=== PATIENT | male | born 1980 | race African-American/Black ===

== ENCOUNTER 2017-11-23 11:01 | Emergency (ER) | payer OTHER ==
[~2017-11-23] VITALS: Ht 188 cm; Wt 95.3 kg
--- NOTE | ~2017-11-23 | EKG ---
[place] [address] [facility] [place] [address] ELECTROCARDIOGRAM REPORT Name: CORRIECLAUDETTE Room #: DEP VINAY Garcia#: [id number] Admission: 11/23/17 Attend Phys: Discharge: 11/23/17 Date of : 78 Report #: [id number] THIS REPORT FOR: //name// [facility] ED Test Date: 2017-11-23 Test Time: 11:07:40 Pat Name: CLAUDETTE DENTON Department: Room: Gender: C 12 [employer] Operator: MARSHA : 1980 Requested By: Abhishek Miles Order Number: [id number] MD: Abdullahi Underwood Measurements Intervals [place] Rate: 81 P: 74 NH: 156 QRS: 61 QRSD: 94 T: 53 QT: 373 QTc: 433 Interpretive Statements Sinus rhythm Consider left ventricular hypertrophy ST elev, probable normal early repol pattern No previous ECG available for comparison Electronically Signed On 11-25-2017 13:52:30 CDT by Abdullahi Underwood [email or web address] <ELECTRONICALLY SIGNED> By: Abdullahi Underwood MD, [facility] 11/25/17 1352 1107 1107 Abdullahi Underwood MD, FACC /EPI
[2017-11-23 11:39] LABS: ABSOLUTE NEUTROPHILS 9.1 thou/uL (1.4-8.2); BASOPHILS 0.8 % (0.0-2.0); EOSINOPHILS 1.9 % (0.0-3.0); HEMATOCRIT 41.1 % (42.0-52.0); HEMOGLOBIN 13.8 gm/dL (14.0-18.0); MCH 29.3 pg (26.0-34.0); MCHC 33.5 g/dL (28.0-37.0); MCV 87.6 fL (80.0-100.0); MONOCYTES 10.4 % (1.0-8.0); PLATELET COUNT 333 thou/uL (150-400); POLYS 60.9 % (36.0-66.0); RBC 4.69 mil/uL (4.50-6.00); RDW 14.9 % (10.5-14.5)
[2017-11-23 11:52] LABS: CALCIUM 8.9 mg/dL (8.5-10.1); CREATININE 1.5 mg/dL (0.7-1.3); POTASSIUM 3.8 mmol/L (3.5-5.1)
[2017-11-23 11:57] LABS: ALBUMIN 3.2 g/dL (3.4-5.0); TOTAL BILIRUBIN 0.1 mg/dL (<0.1-1.0); TOTAL PROTEIN 6.5 g/dL (6.4-8.2)
[2017-11-23] MEDS ORDERED: PROAIR HFA8.5 GM INH (12:11)
[2017-11-23] MEDS ORDERED: PREDNISONE 20 M20 MG PO (12:11)
== END 2017-11-23 12:31 | disposition home or self-care (01) ==
LOC: ER 11:01
PROVIDERS: Emergency Medicine
DX: J45.901 Unspecified asthma with (acute) exacerbation (principal); Z88.8 Allergy status to other drugs, medicaments and biological substances; F17.210 Nicotine dependence, cigarettes, uncomplicated

== ENCOUNTER 2018-04-02 18:32 | Emergency (ER) | payer OTHER ==
[~2018-04-02] VITALS: Ht 188 cm; Wt 95.3 kg
[~2018-04-02 18:32] MED LIST: PREDNISONE 20 M20 MG PO; PROAIR HFA8.5 GM INH
[2018-04-02 21:39] VITALS: BP 139/86
== END 2018-04-02 21:40 | disposition home or self-care (01) ==
LOC: ER 18:32
DX: J98.01 Acute bronchospasm (principal); F17.210 Nicotine dependence, cigarettes, uncomplicated; Z88.8 Allergy status to other drugs, medicaments and biological substances